=== PATIENT | female | born 1960 | race Caucasian/White ===

== ENCOUNTER 2021-02-10 08:22 | Day surgery (SDC) | payer BC ==
[2021-02-10] MEDS ORDERED: Sodium Chloride 0.9% 1,000 ML IV SCH (09:00)
[2021-02-10] MEDS ORDERED: Propofol 200 MG/20 ML SDV ONE (09:33)
[2021-02-10] MEDS ORDERED: fentaNYL 100 MCG/2 ML SDV ONE (09:33)
[2021-02-10] MEDS ORDERED: Midazolam 1 MG/ML 2 ML SDV ONE (09:33)
[2021-02-10 11:25] VITALS: BP 132/74; PULSE 65
--- NOTE | 2021-02-10 11:29 | OR ---
DATE OF PROCEDURE: 02/10/2021 SURGEON: Juan Carlos Leahy MD PROCEDURE: Colonoscopy. FINDINGS: 1. Ascending colon polyp approximately 5 mm, completely removed using cold biopsy forceps. 2. Descending colon polyp, cluster at 25 cm. 3. Descending colon polyp #2, approximately 3 mm, completely removed using cold biopsy forceps. 4. Rectal polyp approximately 3 mm, completely removed with cold biopsy forceps. COMPLICATIONS: None. EMT I/99: None. ANESTHESIA: MAC. PREOPERATIVE DIAGNOSIS: Ulcerative colitis. POSTOPERATIVE DIAGNOSIS: Ulcerative colitis. RISKS: Risks, benefits, alternatives, and limitations including, but not limited to infection, bleeding, perforation, false positives, false negatives were explained to the patient who wished to proceed. PROCEDURE IN DETAIL: The patient was placed in left lateral decubitus position. Digital rectal exam was performed without abnormality. Scope was introduced and advanced atraumatically to the ileocecal valve. Scope was brought back to the ascending, transverse, descending colon, and retroflexed. In the ascending colon, a small amount of inflammation was noted. This was biopsied using cold biopsy forceps, same within the rectal area. The two polyp areas were completely removed using cold biopsy forceps. The descending colon at 25 was a cluster of approximately 5 to 6 small polyps altogether. No evidence of other abnormalities was noted. No abnormalities on retroflexion. The patient did have diverticulosis that was described as very mild, limited to sigmoid colon without evidence of diverticulitis or bleeding. The patient tolerated the procedure well. Juan Carlos Leahy MD /[id number] HOSPITALFelipe
== END 2021-02-10 11:25 | disposition home or self-care (01) ==
LOC: JP.SDS 08:22
PROVIDERS: ATTEND Surgery
DX: K52.9 Noninfective gastroenteritis and colitis, unspecified (principal); K63.5 Polyp of colon; I10 Essential (primary) hypertension; E66.9 Obesity, unspecified
CPT/HCPCS: 45380; 88305; J2250; J2704; J3010; J7030